=== PATIENT | female | born 1965 | race Caucasian/White ===

== ENCOUNTER 2018-03-08 17:53 | Emergency (ER) | payer BC ==
[~2018-03-08] VITALS: Ht 149.9 cm; Wt 56.7 kg
[2018-03-08] MEDS ORDERED: HYDROCODONE-AP1 EAC6 PO (19:08)
[2018-03-08] MEDS ORDERED: ROBAXIN 750 MG750 M1 PO (19:08)
[2018-03-08 19:25] VITALS: BP 112/80
== END 2018-03-08 19:32 | disposition home or self-care (01) ==
LOC: M.ERS 17:53
DX: M54.2 Cervicalgia (principal); M25.511 Pain in right shoulder; Z88.1 Allergy status to other antibiotic agents; Z88.8 Allergy status to other drugs, medicaments and biological substances